=== PATIENT | female | born 1930 | race Caucasian/White ===

== ENCOUNTER 2018-03-22 16:17 | Emergency (ER) | payer MEDICARE, OTHER ==
[~2018-03-22] VITALS: Ht 142.2 cm; Wt 40.0 kg
[~2018-03-22 16:17] MED LIST: ASPIRIN EC81 MG PO; ATIVAN0.5 MG OR; AVELOX400 MG OR; BACTRIM DS1 TAB OR; BACTRIM DS1 TAB PO; BONIVA150 MG OR; BUPROPION150 MG PO; CELEBREX200 MG PO; CENTRUM SILVER1 TAB PO; CITRACA2 PO; DULCOLAX10 MG RE; DUONEB IN; DURAGESIC50 MCG/H1 TD; ESCITALOPRAM OX10 MG PO; FENTANYL50 MCG/HR TD; LASIX20 MG OR; LEVAQUIN750 MG PO; LEXAPRO10 MG PO; LEXAPRO20 MG OR; MEGACE20 MG PO; METAXALONE PO; METOPROL TAR25 MG PO; METOPROLOL SUCC25 MG PO; MIRALAX3350 N1 OR; MIRALAX3350 NF PO; MIRTAZAPINE30 MG PO; MULTIVITAM10 OR; MULTIVITAMIN PO; NICOTINE T21 MG/PATC TD; NORVASC5 MG OR; OXYBUTYNIN10 MG OR; OXYCOD/APAP1 TA4 PO; PERCOCET1 TA2 OR; PLAVIX75 MG PO; POLYETHYLENE GLYCO2 XX; PREDNISONE10 MG PO; PROTONIX40 MG PO; REMERON30 MG OR; RISPERDAL0.5 MG OR; RISPERDAL1 M1 PO; ROBITUSSIN200 MG/10 PO; SKELAXIN800 MG OR; SURFAK240 MG/CAP PO; TIZANIDINE4 MG PO; TRAZODONE100 MG OR; [UNRECOGNIZED DRUG - OTHER] SL
[2018-03-22 17:03] LABS: HEMATOCRIT 40.3 % (37.0-47.0); HEMOGLOBIN 13.7 g/dl (12.0-16.0); IMMATURE GRANULOCYTES 0.6 % (0.0-1.0); MEAN CELL VOLUME 92.4 fL CALC (80.0-100.0); MEAN CORPUSCULAR HGB 31.4 pG CALC (26.0-32.0); NEUT# 7.85 thou/uL (2.00-7.15); RED BLOOD COUNT 4.36 mill/uL (4.20-5.60); RED CELL DISTRI WIDTH 13.2 % (11.5-15.5)
[2018-03-22 17:23] LABS: ALBUMIN 3.7 g/dL (3.2-5.0); ALKALINE PHOSPHATASE 89 u/l (38-126); ANION GAP 11 (6-22 (CALC)); BILIRUBIN, TOTAL 0.4 mg/dL (0.0-1.4); BUN 8 mg/dL (8-23); BUN/CREATININE RATIO 16 (12-20 (CALC)); CARBON DIOXIDE 29 mmol/l (22-30); CHLORIDE 103 mmol/l (95-108); CREATININE 0.5 mg/dL (0.5-1.0); GFR > 60 ML/MIN (>=60 (CALC)); GFR FOR AFR.AMER. > 60 ML/MIN (>=60 (CALC)); POTASSIUM 3.5 mmol/l (3.5-5.1); SGOT/AST 28 u/l (9-36); SGPT/ALT 28 u/l (11-66); SODIUM 139 mmol/l (137-146); TOTAL PROTEIN 6.6 g/dL (6.3-8.2)
[2018-03-22 17:33] LABS: MYOGLOBIN 39 ng/mL (0 - 62)
[2018-03-22 18:50] LABS: URINE BILIRUBIN - DIPSTICK NEGATIVE (NEGATIVE); URINE BLOOD DIPSTICK NEGATIVE (NEGATIVE); URINE CLARITY CLEAR; URINE COLOR YELLOW; URINE GLUCOSE - DIPSTICK NEGATIVE (NEGATIVE); URINE KETONE TRACE mg/dL (NEGATIVE); URINE LEUK ESTERASE NEGATIVE (NEGATIVE); URINE NITRITE - DIPSTICK NEGATIVE (Negative); URINE PROTEIN - DIPSTICK NEGATIVE (NEG-TRACE); URINE UROBILINOGEN - DIPSTICK 0.2 E.U./dL (0.2)
[2018-03-22 18:55] VITALS: BP 193/77
== END 2018-03-22 19:23 | disposition home or self-care (01) ==
LOC: ED 16:17
PROVIDERS: Emergency Medicine
DX: R63.0 Anorexia (principal); R53.1 Weakness; R11.0 Nausea; R42 Dizziness and giddiness; K59.00 Constipation, unspecified; M81.0 Age-related osteoporosis without current pathological fracture; F17.210 Nicotine dependence, cigarettes, uncomplicated

== ENCOUNTER 2018-04-02 14:51 | Emergency (ER) | payer MEDICARE, OTHER ==
[~2018-04-02] VITALS: Ht 142.2 cm; Wt 45.0 kg
[2018-04-02] MEDS ORDERED: GABAPENTIN100 MG PO (15:43)
[2018-04-02] MEDS ORDERED: ASPIRIN81 MG PO (15:44)
[2018-04-02 15:50] LABS: HEMATOCRIT 43.8 % (37.0-47.0); HEMOGLOBIN 14.5 g/dl (12.0-16.0); IMMATURE GRANULOCYTES 0.3 % (0.0-5.0); MEAN CELL VOLUME 94.2 fL CALC (80.0-100.0); MEAN CORPUSCULAR HGB 31.2 pG CALC (26.0-32.0); MEAN CORPUSCULAR HGB CONC 33.1 g/L CALC (32.0-36.0); NEUT# 6.47 thou/uL (2.00-7.15); RED BLOOD COUNT 4.65 mill/uL (4.20-5.60); RED CELL DISTRI WIDTH 13.7 % (11.5-15.5)
[2018-04-02] MEDS ORDERED: CHOLESTYRAMI PO (15:52)
[2018-04-02 15:57] LABS: ALBUMIN 3.7 g/dL (3.2-5.0); ALKALINE PHOSPHATASE 90 u/l (38-126); AMYLASE 53 u/l (30-110); BILIRUBIN, TOTAL 0.5 mg/dL (0.0-1.4); BUN 14 mg/dL (8-23); BUN/CREATININE RATIO 20 (12-20 (CALC)); CARBON DIOXIDE 30 mmol/l (22-30); CHLORIDE 103 mmol/l (95-108); CREATININE 0.7 mg/dL (0.5-1.0); GFR > 60 ML/MIN (>=60 (CALC)); GFR FOR AFR.AMER. > 60 ML/MIN (>=60 (CALC)); LIPASE 192 u/l (23-300); SGOT/AST 18 u/l (9-36); SGPT/ALT 21 u/l (11-66); SODIUM 140 mmol/l (137-146); TOTAL PROTEIN 6.3 g/dL (6.3-8.2)
[2018-04-02] MEDS ORDERED: [UNRECOGNIZED DRUG - OTHER] (15:58)
[2018-04-02 16:00] LABS: ANION GAP 10 (6-22 (CALC)); POTASSIUM 2.7 mmol/l (3.5-5.1)
[2018-04-02 16:22] LABS: URINE BILIRUBIN - DIPSTICK NEGATIVE (NEGATIVE); URINE BLOOD DIPSTICK NEGATIVE (NEGATIVE); URINE COLOR YELLOW; URINE GLUCOSE - DIPSTICK NEGATIVE (NEGATIVE); URINE KETONE TRACE mg/dL (NEGATIVE); URINE LEUK ESTERASE NEGATIVE (NEGATIVE); URINE NITRITE - DIPSTICK NEGATIVE (Negative); URINE SPECIFIC GRAVITY 1.025; URINE UROBILINOGEN - DIPSTICK 0.2 E.U./dL (0.2)
[2018-04-02 16:29] LABS: URINE CLARITY CLEAR
[2018-04-02 16:30] LABS: URINE PROTEIN - DIPSTICK Trace mg/dL (NEG-TRACE)
[2018-04-02 19:40] LABS: C. DIFFICILE TOXIN A&B NEGATIVE (NEGATIVE)
[2018-04-02] MEDS ORDERED: LOMOTIL2.5 MG PO (23:02)
[2018-04-02] MEDS ORDERED: KLOR-CON SPRINK8 MEQ PO (23:02)
[2018-04-02 23:27] VITALS: BP 161/70
== END 2018-04-02 23:29 | disposition home or self-care (01) ==
LOC: ED 14:51
PROVIDERS: Emergency Medicine
DX: R19.7 Diarrhea, unspecified (principal); E87.6 Hypokalemia; M19.90 Unspecified osteoarthritis, unspecified site; M81.0 Age-related osteoporosis without current pathological fracture; M54.9 Dorsalgia, unspecified; G89.29 Other chronic pain; F17.210 Nicotine dependence, cigarettes, uncomplicated

== ENCOUNTER 2018-08-06 06:51 | Emergency (ER) | payer MEDICARE, OTHER ==
[~2018-08-06] VITALS: Ht 142.2 cm; Wt 60.0 kg
[~2018-08-06 06:51] MED LIST changes: +ASPIRIN81 MG PO; +CHOLESTYRAMI PO; +GABAPENTIN100 MG PO; +KLOR-CON SPRINK8 MEQ PO; +LOMOTIL2.5 MG PO; +[UNRECOGNIZED DRUG - OTHER]
[2018-08-06] MEDS ORDERED: NAPROSYN500 MG PO (07:29)
[2018-08-06 07:30] VITALS: BP 152/66
== END 2018-08-06 07:30 | disposition home or self-care (01) ==
LOC: ED 06:51
DX: S93.601A Unspecified sprain of right foot, initial encounter (principal); F17.200 Nicotine dependence, unspecified, uncomplicated; W18.11XA Fall from or off toilet without subsequent striking against object, initial encounter; Y92.009 Unspecified place in unspecified non-institutional (private) residence as the place of occurrence of the external cause

== ENCOUNTER 2018-11-21 09:40 | Observation (INO) | payer MEDICARE, OTHER ==
[~2018-11-21] VITALS: Ht 144.8 cm; Wt 39.0 kg
[~2018-11-21 09:40] MED LIST changes: +NAPROSYN500 MG PO
--- NOTE | 2018-11-21 10:16 | NUR ---
PATIENT TO ROOM VIA WHEELCHAIR. ASSISTED ONTO STRETCHER X2 STAFF ASSIST. DAUGHTER AT BEDSIDE.
[2018-11-21 10:50] LABS: HEMATOCRIT 44.3 % (37.0-47.0); HEMOGLOBIN 14.6 g/dl (12.0-16.0); IMMATURE GRANULOCYTES 0.6 % (0.0-5.0); MEAN CELL VOLUME 91.5 fL CALC (80.0-100.0); MEAN CORPUSCULAR HGB 30.2 pG CALC (26.0-32.0); NEUT# 6.97 thou/uL (2.00-7.15); RED BLOOD COUNT 4.84 mill/uL (4.20-5.60); RED CELL DISTRI WIDTH 13.8 % (11.5-15.5)
[2018-11-21 11:12] LABS: ALBUMIN 3.9 g/dL (3.2-5.0); ALKALINE PHOSPHATASE 101 u/l (38-126); ANION GAP 13 (6-22 (CALC)); BILIRUBIN, TOTAL 0.7 mg/dL (0.0-1.4); BUN 14 mg/dL (8-23); BUN/CREATININE RATIO 22 (12-20 (CALC)); CARBON DIOXIDE 25 mmol/l (22-30); CHLORIDE 103 mmol/l (95-108); CREATININE 0.6 mg/dL (0.5-1.0); GFR > 60 ML/MIN (>=60 (CALC)); GFR FOR AFR.AMER. > 60 ML/MIN (>=60 (CALC)); LIPASE 36 u/l (23-300); SGOT/AST 21 u/l (9-36); SODIUM 138 mmol/l (137-146); TOTAL PROTEIN 6.6 g/dL (6.3-8.2)
[2018-11-21] MEDS ORDERED: OMEPRAZOLE10 MG PO (14:14)
--- NOTE | 2018-11-21 14:54 | NUR ---
PT TAKEN TO ROOM 273 WITHOUT INCIDENT, REPORT TO BLAIR.
[2018-11-21 15:10] VITALS: BP 122/72
--- NOTE | 2018-11-21 18:18 | NUR ---
REPORT RECEIVED FROM NOHEMI IN ED, PT ARRIVED ON UNIT VIA STRETCHER @ 1440 AND TRANSFERRED TO BED BYL ED STAFF. ALERT AND ORIENTED X 3, C/O ABDOMINAL DISCOMFORT BUT DENIED PAIN, ORIENTED TO ROOM AND CALL ROQUE, NEEDS ADDRESSED, WILL CONTINUE TO MONITOR, CALL ROQUE IN REACH.
[2018-11-21 20:00] VITALS: BP 113/44
--- NOTE | 2018-11-21 20:39 | NUR ---
Patient alert and oriented with good respiratory pattern at the time of this note. Does not report any pain at the time of this note. Skin is intact Patient with difficulty listening. Family is oriented to bring the hearing treatment.
[2018-11-21 23:33] VITALS: BP 115/60
--- NOTE | 2018-11-22 01:16 | NUR ---
Patient alert and oriented with good breathing pattern at the time of this note. Sleep. Patient Does not report any pain at the time of this note.
--- NOTE | 2018-11-22 04:23 | NUR ---
Stable patient at the time of this note no change is observed. UA pending.
[2018-11-22 04:55] VITALS: BP 129/57
[2018-11-22 05:23] LABS: HEMATOCRIT 38.4 % (37.0-47.0); IMMATURE GRANULOCYTES 0.4 % (0.0-5.0); MEAN CELL VOLUME 92.5 fL CALC (80.0-100.0); MEAN CORPUSCULAR HGB 29.6 pG CALC (26.0-32.0); NEUT# 4.01 thou/uL (2.00-7.15); RED BLOOD COUNT 4.15 mill/uL (4.20-5.60); RED CELL DISTRI WIDTH 13.9 % (11.5-15.5)
[2018-11-22 05:27] LABS: HEMOGLOBIN 12.3 g/dl (12.0-16.0)
[2018-11-22 05:30] LABS: ALKALINE PHOSPHATASE 75 u/l (38-126); AMYLASE < 30 u/l (30-110); BILIRUBIN, TOTAL 0.5 mg/dL (0.0-1.4); BUN 12 mg/dL (8-23); BUN/CREATININE RATIO 23 (12-20 (CALC)); CARBON DIOXIDE 24 mmol/l (22-30); CHLORIDE 110 mmol/l (95-108); CREATININE 0.5 mg/dL (0.5-1.0); GFR > 60 ML/MIN (>=60 (CALC)); GFR FOR AFR.AMER. > 60 ML/MIN (>=60 (CALC)); LIPASE 72 u/l (23-300); MAGNESIUM 1.8 mg/dL (1.6-2.3); SGOT/AST 17 u/l (9-36); SODIUM 139 mmol/l (137-146)
[2018-11-22 05:37] LABS: ALBUMIN 2.9 g/dL (3.2-5.0); ANION GAP 9 (6-22 (CALC)); POTASSIUM 3.8 mmol/l (3.5-5.1); TOTAL PROTEIN 5.2 g/dL (6.3-8.2)
--- NOTE | 2018-11-22 07:00 | NUR ---
SHIFT CHANGE REPORT, PT SLEEPING BUT AROUSES TO TACTILE STIMULI, ORIENTED, C/O MILD PAIN TO ABD, IVF INFUSING, TELE MONITOR IN PLACE, REFUSED BREAKFAST STATING SHE DID NOT LIKE WHAT WAS SERVED BUT COULDNT THINK OF A SUBSTITUTE WHEN OFFERED OTHER CHOICES, NEEDS ADDRESSED, CALL ROQUE IN REACH, WILL CONTINUE TO MONITOR.
[2018-11-22 08:05] VITALS: BP 132/65
[2018-11-22 11:20] VITALS: BP 109/45
--- NOTE | 2018-11-22 12:00 | NUR ---
DR RETANA ROUNDED AND DISCUSSED PLAN OF CARE, PT REJECTS GOING TO REHAB BUT WILL ACCEPT HOME HEALTH.
[2018-11-22 13:49] LABS: URINE BILIRUBIN - DIPSTICK NEGATIVE (NEGATIVE); URINE BLOOD DIPSTICK NEGATIVE (NEGATIVE); URINE COLOR YELLOW; URINE GLUCOSE - DIPSTICK NEGATIVE (NEGATIVE); URINE KETONE TRACE mg/dL (NEGATIVE); URINE LEUK ESTERASE NEGATIVE (NEGATIVE); URINE NITRITE - DIPSTICK NEGATIVE (Negative); URINE PROTEIN - DIPSTICK TRACE mg/dL (NEG-TRACE); URINE SPECIFIC GRAVITY >=1.030; URINE UROBILINOGEN - DIPSTICK 0.2 E.U./dL (0.2)
[2018-11-22 15:35] VITALS: BP 103/61
--- NOTE | 2018-11-22 16:00 | NUR ---
CAREGIVER AT BEDSIDE AND ASSISTED WITH FEED, ALL NEEDS ADDRESSED.
--- NOTE | 2018-11-22 19:00 | NUR ---
RECEIVED REPORT FROM DAY SHIFT NURSES. PT RESTING QUIETLY IN BE WITH EYES CLOSED. NO NEEDS AT THIS TIME. CALL ROQUE IN REACH. WILL CONTINUE TO MONITOR.
[2018-11-22 19:44] VITALS: BP 109/58
--- NOTE | 2018-11-22 20:26 | NUR ---
PT RESTING IN BED WITH EYES CLOSED. PT IS VERY HARD OF HEARING. WAKES TO LOUD STIMULI. PT IS MEDICATED PER ORDER. ASSESMENT COMPLETED AT THIS TIME(SEE INTERVENTIONS) PT GOT IRRATE WHEN ASKED IF SHE COULD GRAB THE BAR AND TURN. PT YELLED THAT SHE IS BED RIDDEN AND CANNOT DO ANYTHING FOR HERSELF. PT THEN TURNED WITH NO ASSIST. PT REPOSTIONED. NO OTHER NEEDS AT THIS TIME. CALL ROQUE IN REACH. WILL CONTINUE TO MONITOR.
[2018-11-23 00:10] VITALS: BP 111/62
--- NOTE | 2018-11-23 00:44 | NUR ---
PT MEDICATED PER ORDER FOR PAIN. PT ASKED FOR SNACK, PROVIDED WITH JELLO. NO OTHER NEEDS AT THIS TIME CALL ROQUE IN REACH. WILL CONTINUE TO MONITOR.
[2018-11-23 04:33] VITALS: BP 108/62
[2018-11-23 05:07] LABS: HEMATOCRIT 35.1 % (37.0-47.0); HEMOGLOBIN 11.4 g/dl (12.0-16.0); IMMATURE GRANULOCYTES 0.4 % (0.0-5.0); MEAN CELL VOLUME 92.6 fL CALC (80.0-100.0); MEAN CORPUSCULAR HGB 30.1 pG CALC (26.0-32.0); MEAN CORPUSCULAR HGB CONC 32.5 g/L CALC (32.0-36.0); NEUT# 4.13 thou/uL (2.00-7.15); RED BLOOD COUNT 3.79 mill/uL (4.20-5.60)
[2018-11-23 05:29] LABS: ALBUMIN 2.6 g/dL (3.2-5.0); ALKALINE PHOSPHATASE 65 u/l (38-126); ANION GAP 8 (6-22 (CALC)); BILIRUBIN, TOTAL 0.4 mg/dL (0.0-1.4); BUN 10 mg/dL (8-23); BUN/CREATININE RATIO 18 (12-20 (CALC)); CARBON DIOXIDE 24 mmol/l (22-30); CHLORIDE 109 mmol/l (95-108); CREATININE 0.6 mg/dL (0.5-1.0); GFR > 60 ML/MIN (>=60 (CALC)); GFR FOR AFR.AMER. > 60 ML/MIN (>=60 (CALC)); MAGNESIUM 1.6 mg/dL (1.6-2.3); POTASSIUM 4.2 mmol/l (3.5-5.1); SGOT/AST 17 u/l (9-36); SODIUM 136 mmol/l (137-146); TOTAL PROTEIN 4.9 g/dL (6.3-8.2)
--- NOTE | 2018-11-23 08:05 | NUR ---
ASSESSMENT DONE. PT IS A&O X3 . TELE IN PLACE. PT STATED PAIN IN BACK 02/21 BUT DENIES PAIN MEDICATION AT THIS TIME. IVF INFUSLING WELL. SAFETY PRECAUTIONS REINFORCED AND CALL LIGHT IN REACH.
[2018-11-23 08:21] VITALS: BP 145/54
[2018-11-23 12:00] VITALS: BP 116/57
--- NOTE | 2018-11-23 12:00 | NUR ---
PT STATISTICS TEACHER IN ROOM AND SET PT FOR LUNCH. PT DENIES ANY OTHER NEEDS AT THIS TIME. CALL LIGHT IN REACH.
[2018-11-23 16:00] VITALS: BP 117/45
--- NOTE | 2018-11-23 16:09 | NUR ---
PT IS RESTING ON HER RIGHT SIDE. NO S/S OF DISTTRESS NOTED. CALL LIGHT IN REACH.
--- NOTE | 2018-11-23 18:30 | NUR ---
Discharge instructions given. Patient verbalizes understanding of same. Discharged in stable condition via Wheelchair to Home with family. All belongings sent with pt.
== END 2018-11-23 18:30 | disposition home or self-care (01) ==
LOC: ED 09:40 → ED-I 13:09 → ED 13:34 → MS2 13:35
PROVIDERS: Family Medicine; ADMIT Internal Medicine Nephrology; ATTEND Internal Medicine Nephrology
DX: K52.9 Noninfective gastroenteritis and colitis, unspecified (principal); E86.0 Dehydration; E87.6 Hypokalemia; I10 Essential (primary) hypertension; J44.9 Chronic obstructive pulmonary disease, unspecified; I25.10 Atherosclerotic heart disease of native coronary artery without angina pectoris; M19.90 Unspecified osteoarthritis, unspecified site; H91.90 Unspecified hearing loss, unspecified ear; F17.210 Nicotine dependence, cigarettes, uncomplicated; M54.5 Low back pain; G89.29 Other chronic pain; F03.90 Unspecified dementia, unspecified severity, without behavioral disturbance, psychotic disturbance, mood disturbance, and anxiety; G62.9 Polyneuropathy, unspecified; G25.81 Restless legs syndrome; R11.2 Nausea with vomiting, unspecified; R19.7 Diarrhea, unspecified; R10.9 Unspecified abdominal pain; K62.89 Other specified diseases of anus and rectum
CPT/HCPCS: G0378; J1650; S0164